=== PATIENT | female | born 1985 | race Caucasian/White ===

== ENCOUNTER → 2018-10-01 12:18 | Outpatient (CLI) | payer BC, SELFPAY ==
--- NOTE | 2018-10-01 12:20 | DI.US.S_ITS ---
PROCEDURE: US OB <= 14 WEEKS FETUS INDICATIONS: DATES OUTSIDE/PRIOR DATING DATA: Last menstrual period (LMP): 07/28/18. LMP-based estimated date of delivery (YOU): 05/04/19. First dating scan (date and location): 10/01/18 at [facility]. Estimated date of delivery (YOU) from first dating scan: 05/11/19. TECHNIQUE: Real-time scanning was performed of the fetus and maternal pelvic organs, with image documentation. Endovaginal scanning was also performed to better visualize the fetus and maternal ovaries. COMPARISON: None. FINDINGS: Embryo: [place]-rump length measures 1.8 cm. Estimated gestational age is 8 weeks 2 days. heart rate is 165 beats per minute. A yolk sac is visualized. Measurement variability in dating: +/- 4 weeks by LMP, +/- 7 days by mean sac diameter (use before 6 weeks gestation if crown-rump length not able to be measured), +/- 5 days by crown-rump length (up to 8 weeks 6 days gestation), +/- 7 days by crown-rump length (up to 13 weeks 6 days gestation). Maternal organs: Left ovary is not visualized on this study. 1.9 cm corpus luteum is noted in right ovary. No ectopic gestational sac. No gross adnexal mass. Limited images through the kidneys demonstrate no hydronephrosis. IMPRESSION: Single live intrauterine gestation. Estimated gestational age based on current study is 8 weeks 2 days. Estimated due date based on current study of 05/11/19. heart rate is 165 beats per minute. Dictated by: Georges Galicia M.D. on 10/01/2018 at 13:47 Approved by: Georges Galicia M.D. on 10/01/2018 at 13:50
== END ==
PROVIDERS: PCP Family Medicine; Visit Provider Family Medicine
DX: Z34.81 Encounter for supervision of other normal pregnancy, first trimester (principal); Z3A.08 8 weeks gestation of pregnancy
CPT/HCPCS: 76801; 76817

== ENCOUNTER → 2018-10-24 12:25 | Outpatient (CLI) | payer BC, SELFPAY | PROVIDERS: PCP Family Medicine; Visit Provider Family Medicine | DX: Z34.81 Encounter for supervision of other normal pregnancy, first trimester (principal) | CPT/HCPCS: 87086 ==

== ENCOUNTER → 2018-12-22 13:04 | Outpatient (CLI) | payer BC, SELFPAY ==
--- NOTE | 2018-12-22 13:05 | DI.US.S_ITS ---
PROCEDURE: US OB >= 14 WEEKS FETUS INDICATIONS: ANATOMIC SURVEY OUTSIDE/PRIOR DATING DATA: Last menstrual period (LMP): 07/28/18. LMP-based estimated date of delivery (YOU): 05/04/19. First dating scan (date and location): 10/01/18. Estimated date of delivery (YOU) from first dating scan: 05/11/19. TECHNIQUE: Real-time scanning was performed of the fetus, with image documentation and biometric measurements. Endovaginal scanning: Not needed. COMPARISON: None. FINDINGS: General: A single living intrauterine gestation is present. Presentation: Variable. Placenta: Placental position is anterior, without previa. Amniotic fluid index: 14.1 cm, normal range is 5-24 cm. heart rate: 152 beats per minute. Maternal cervical canal: 5.2 cm long. Normal lower limit is 2.5 cm. biometrics: Biparietal diameter: 4.7 cm, 20 weeks 2 days Head circumference: 17.9 cm, 20 weeks 2 days Abdominal circumference: 16.7 cm, 21 weeks 5 days Femur length: 3.3 cm, 20 weeks 4 days Estimated gestational age from initial scan: not applicable. Composite gestational age from present scan: 20 weeks 4 days 20 weeks 0 days Estimated weight and percentile: 87 g, 91st percentile Measurement variability for biometric dating: +/- 7 days from 14 weeks to 15 weeks 6 days gestation, +/- 10 days from 16 weeks to 21 weeks 6 days gestation, +/- 2 weeks from 22 weeks to 27 weeks 6 days gestation, +/- 3 weeks for 28 weeks gestation or later. weight reference: 4500 g or EFW >90/95% is considered macrosomia or large for gestational age. EFW <10% is small for gestational age. EFW 5% or less is considered intra-uterine growth restriction. Anatomic survey: Neuro: Ventricles are non-dilated at less than 10 mm. Cisterna magna is normal at 3-11 mm. Cerebellum is normal in size and morphology. Nuchal skin fold: Normal at less than 6 mm between 14-21 weeks gestational age. Face: Nose and lips, facial profile are normal. Spine: No evidence for spina bifida. Heart: Not well-seen, due to positioning. Diaphragm: Diaphragm is intact. Stomach: Left-sided stomach is present. Kidneys: No hydronephrosis. Normal is less than 5 mm in 2nd trimester, less than 7 mm in 3rd trimester. Cord: 3-vessel cord has orthotopic insertion. Bladder: Normal in size. Extremities: All 4 extremities identified. IMPRESSION: Appropriate interval growth. Normal anatomic survey however the 4 chamber view of heart and cardiac outflow tracts were not well seen due to due positioning. Recommend consideration of followup completion of the anatomic survey in approximately 10 days-2 weeks. Delivery date is projected to be centered on 05/11/19, plus or -5 days. Dictated by: Sergio Alberts M.D. on 12/22/2018 at 16:05 Approved by: Sergio Alberts M.D. on 12/22/2018 at 16:08
== END ==
PROVIDERS: PCP Family Medicine; Visit Provider Family Medicine
DX: Z34.82 Encounter for supervision of other normal pregnancy, second trimester (principal); Z3A.20 20 weeks gestation of pregnancy
CPT/HCPCS: 76811

== ENCOUNTER → 2019-01-05 13:49 | Outpatient (CLI) | payer BC, SELFPAY ==
--- NOTE | 2019-01-05 13:51 | DI.US.S_ITS ---
PROCEDURE: US OB FOLLOW UP INDICATIONS: OB greater than 14wks OUTSIDE/PRIOR DATING DATA: Last menstrual period (LMP): 07/28/18. LMP-based estimated date of delivery (YOU): 05/04/19. First dating scan (date and location): 10/01/18. Estimated date of delivery (YOU) from first dating scan: 05/11/19. TECHNIQUE: Real-time scanning was performed of the fetus, with image documentation and biometric measurements. COMPARISON: [facility], OB <= 14 WEEKS FETUS, 10/01/2018, 12:26. [facility], OB >= 14 WEEKS FETUS, 12/22/2018, 13:27. FINDINGS: General: A single living intrauterine gestation is present. Presentation: Vertex. Placenta: Placental position is anterior, without previa. Amniotic fluid index: 9.3 cm. heart rate: 144 beats per minute. Maternal cervical canal: 8.5 cm long. Other: Cardiac motion degrades exam. A 4 chamber heart is identified. The left and right ventricular cardiac outflow tracts are blurred by motion artifact, but no gross abnormalities are identified.. IMPRESSION: 1. Single living intrauterine gestation with heart rate of 144 beats per minute. 2. Exam degraded by motion artifact; within this context, no gross abnormality of the left and right ventricular outflow tracts is identified. Dictated by: Aidan Singh [facility] Interpreted: Igor Best MD on 01/05/2019 at 15:45 Approved by: Igor Best M.D. on 01/05/2019 at 17:43
== END ==
PROVIDERS: PCP Family Medicine; Visit Provider Family Medicine
DX: O35.9XX0 Maternal care for (suspected) fetal abnormality and damage, unspecified, not applicable or unspecified (principal)
CPT/HCPCS: 76816

== ENCOUNTER → 2019-02-20 07:41 | Outpatient (CLI) | payer BC, SELFPAY ==
[2019-02-20 09:29] LABS: Add Manual Diff / Slide Review NO; Basophils Absolute Auto 0 /uL (0-100); Basophils Percent Auto 0.3 % (0-2); Eosinophils Absolute Auto 100 /uL (0-450); Eosinophils Percent Auto 1.1 % (2-4); Hematocrit 38.5 % (36-46); Hemoglobin 12.9 g/dL (12.0-16.0); Lymphocytes Absolute Auto 1100 /uL (1100-4500); Lymphocytes Percent Auto 17.4 % (25-40); Mean Corpuscular HGB Conc 33.4 % (30-36); Mean Corpuscular Hemoglobin 29.9 PG (26-34); Mean Corpuscular Volume 89.5 fL (80-100); Monocytes Absolute Auto 300 /uL (0-900); Monocytes Percent Auto 4.5 % (3-14); Neutrophils Absolute Auto 5100 /uL (1500-7000); Neutrophils Percent Auto 76.7 % (50-75); Platelet Count 216 X10^3/uL (150-400); Red Cell Distribution Width 13.6 % (11.6-14.8); White Blood Cell Count 6.6 X10^3/uL (4.5-11.0)
[2019-02-20 09:47] LABS: GTT (PREG) 1 Hour PP 50gm Dose 143 mg/dL (76-139)
[2019-02-20 10:36] LABS: Hepatitis B Surface Antigen NEGATIVE s/c (NEGATIVE); Rubella Antibody IgG 11.4 IU/mL (>15)
[2019-02-20 11:01] LABS: HIV 1 and 2 Antibody NEGATIVE (NEGATIVE); Hep C Virus Ab w/Reflex Quant NEGATIVE s/c (NEGATIVE)
[2019-02-23 22:43] LABS: RPR Screen Nonreactive (Nonreactive)
== END ==
PROVIDERS: Family Medicine; PCP Family Medicine; Visit Provider Family Medicine
DX: Z34.81 Encounter for supervision of other normal pregnancy, first trimester (principal); Z3A.26 26 weeks gestation of pregnancy
CPT/HCPCS: 36415; 80055; 82950; 86703; 86787; 86803; 86850; 86900; 86901

== ENCOUNTER 2019-03-30 10:46 | Outpatient (CLI) | payer BC, SELFPAY ==
--- NOTE | 2019-03-30 11:26 | DI.US.S_ITS ---
PROCEDURE: US OB >= 14 WEEKS FETUS INDICATIONS: EFW, BLANCA; GESTATIONAL DIABETES OUTSIDE/PRIOR DATING DATA: Last menstrual period (LMP): 07/28/18. LMP-based estimated date of delivery (YOU): 05/04/19. First dating scan (date and location): 10/01/18. Estimated date of delivery (YOU) from first dating scan: 05/11/19. TECHNIQUE: Real-time scanning was performed of the fetus, with image documentation and biometric measurements. Endovaginal scanning: Not needed for this study COMPARISON: [facility], OB >= 14 WEEKS FETUS, 12/22/2018, 13:27. FINDINGS: General: A single living intrauterine gestation is present. Presentation: Breech. Placenta: Placental position is anterior, without previa. Amniotic fluid index: 13.3 cm, normal range is 5-24 cm. heart rate: 140 beats per minute. biometrics: Biparietal diameter: 8.5 cm, 34 weeks 1 day Head circumference: 32.6 cm, 36 weeks 6 days Abdominal circumference: 30.5 cm, 34 weeks 3 days Femur length: 6.8 cm, 35 weeks 1 day Estimated gestational age from initial scan: 34 weeks 0 days Composite gestational age from present scan: 35 weeks 1 day Estimated weight and percentile: 2534 g, upper 70 and percentile Measurement variability for biometric dating: +/- 7 days from 14 weeks to 15 weeks 6 days gestation, +/- 10 days from 16 weeks to 21 weeks 6 days gestation, +/- 2 weeks from 22 weeks to 27 weeks 6 days gestation, +/- 3 weeks for 28 weeks gestation or later. weight reference: 4500 g or EFW >90/95% is considered macrosomia or large for gestational age. EFW <10% is small for gestational age. EFW 5% or less is considered intra-uterine growth restriction. Anatomic survey: Neuro: Ventricles are non-dilated at less than 10 mm. Cisterna magna is normal at 3-11 mm. Cerebellum is normal in size and morphology. Nuchal skin fold: Normal at less than 6 mm between 14-21 weeks gestational age. Face: Nose and lips, facial profile are normal. Spine: No evidence for spina bifida. Heart: 4-chambered heart is present, with normal ventricular outflow tracts. Diaphragm: Diaphragm is intact. Stomach: Left-sided stomach is present. Kidneys: No hydronephrosis. Normal is less than 5 mm in 2nd trimester, less than 7 mm in 3rd trimester. Cord: 3-vessel cord has orthotopic insertion. Bladder: Normal in size. Extremities: All 4 extremities identified. IMPRESSION: Breech presentation, appropriate interval growth. The delivery date is projected to be centered on 05/11/19, plus or -5 days, based on the first OB ultrasound 10/01/18. Dictated by: Sergio Alberts M.D. on 03/30/2019 at 12:10 Approved by: Sergio Alberts M.D. on 03/30/2019 at 12:13
--- NOTE | 2019-03-30 13:16 | PM.OBTRLD ---
Visit Information Visit Information Date of evaluation: 03/30/19 Primary OB Provider: Misty Nicholson Reason for Evaluation: Yes non-stress test non-stress test reason: diabetes (starting metformin) [facility] Social History Smoking Status: Former smoker Social History Smoking Status: Former smoker Evaluation Evaluation Baseline heart rate: 140 Variability: Average (6-10) monitor accelerations: Present monitor decelerations: Absent Diagnosis, Plan/Disposition Final Diagnosis (1) GDM, class A2: Current Visit: No Status: Acute (2) 34 weeks gestation of : Current Visit: No Status: Acute Plan/Disposition Plan: 33-year-old at 34 weeks gestation with GDM A2 now on metformin. NST reactive Growth is appropriate, BLANCA 13 Plan for twice weekly NST with once weekly BLANCA remainder OB Disposition: home
== END 2019-03-30 12:30 | disposition home or self-care (01) ==
LOC: LABOR 10:53 → OB 03-31 12:09
PROVIDERS: PCP Family Medicine; Visit Provider Family Medicine
DX: O24.415 Gestational diabetes mellitus in pregnancy, controlled by oral hypoglycemic drugs (principal); Z3A.34 34 weeks gestation of pregnancy
CPT/HCPCS: 59025; 59050; 76811; G0378; G0379

== ENCOUNTER 2019-04-02 07:21 | Outpatient (CLI) | payer BC, SELFPAY ==
--- NOTE | 2019-04-02 08:28 | PM.OBTRLD ---
Visit Information Visit Information Date of evaluation: 04/02/19 Primary OB Provider: Misty Nicholson Reason for Evaluation: Yes non-stress test non-stress test reason: diabetes PFSH Social History Smoking Status: Former smoker Exam Vital Signs (past 8 hours): BP 115/56 HR 93 Evaluation Evaluation Baseline heart rate: 135 Variability: Moderate (11-25) monitor accelerations: Present monitor decelerations: Absent Category of Tracing: I Diagnosis, Plan/Disposition Final Diagnosis (1) GDM, class A2: Current Visit: No Status: Acute (2) 34 weeks gestation of : Current Visit: No Status: Acute Plan/Disposition Plan: Reactive NST Continue twice weekly NST and once weekly BPP OB Disposition: home
== END 2019-04-02 08:40 | disposition home or self-care (01) ==
LOC: LABOR 08:45 → OB 04-07 08:10
PROVIDERS: PCP Family Medicine; Visit Provider Family Medicine
DX: O24.419 Gestational diabetes mellitus in pregnancy, unspecified control (principal); Z3A.34 34 weeks gestation of pregnancy
CPT/HCPCS: 59025; G0378; G0379

== ENCOUNTER 2019-04-06 07:32 | Outpatient (CLI) | payer BC, SELFPAY ==
--- NOTE | 2019-04-06 08:16 | DI.US.S_ITS ---
PROCEDURE: US OB LIMITED INDICATIONS: AMNIOTIC FLUID INDEX OUTSIDE/PRIOR DATING DATA: Last menstrual period (LMP): 07/28/18. LMP-based estimated date of delivery (YOU): 05/04/19. First dating scan (date and location): 10/01/18. Estimated date of delivery (YOU) from first dating scan: 09/11/19. TECHNIQUE: Real-time scanning was performed of the fetus, with image documentation. Endovaginal scanning: Not performed COMPARISON: [facility], OB >= 14 WEEKS FETUS, 03/30/2019, 11:13. [facility] OB FOLLOW UP, 01/05/2019, 13:58. [facility] OB >= 14 WEEKS FETUS, 12/22/2018, 13:27. [facility] OB <= 14 WEEKS FETUS, 10/01/2018, 12:26. FINDINGS: A single living intrauterine gestation is present. Presentation: Vertex. Placenta: Placental position is anterior, without previa. Amniotic fluid index: 17.1 cm, normal range is 5-24 cm. heart rate: 137 beats per minute. Estimated gestational age from initial scan: 35 weeks zero days. IMPRESSION: Single living intrauterine fetus in vertex presentation. Normal BLANCA (largest pocket 5.8 cm). Dictated by: Eulogio Cruz M.D. on 04/06/2019 at 9:02 Approved by: Eulogio Cruz M.D. on 04/06/2019 at 9:05
--- NOTE | 2019-04-06 08:18 | PM.OBTRLD ---
Visit Information Visit Information Date of evaluation: 04/06/19 Primary OB Provider: Misty Nicholson Reason for Evaluation: Yes non-stress test non-stress test reason: diabetes PFSH Social History Smoking Status: Former smoker Social History Smoking Status: Former smoker Exam Vital Signs (past 8 hours): BP 125/59 HR 85 Evaluation Evaluation Baseline heart rate: 130 Variability: Moderate (11-25) monitor accelerations: Present monitor decelerations: Absent Diagnosis, Plan/Disposition Final Diagnosis (1) 35 weeks gestation of : Current Visit: No Status: Acute (2) GDM, class A2: Current Visit: No Status: Acute Plan/Disposition Plan: NST reactive. BLANCA 17. Continue twice weekly NST and once weekly BLANCA. OB Disposition: home
== END 2019-04-06 08:32 | disposition home or self-care (01) ==
LOC: LABOR 07:37 → OB 04-07 08:11
PROVIDERS: PCP Family Medicine; Visit Provider Family Medicine
DX: O24.419 Gestational diabetes mellitus in pregnancy, unspecified control (principal); Z3A.35 35 weeks gestation of pregnancy
CPT/HCPCS: 59025; 76815; G0378; G0379

== ENCOUNTER 2019-04-09 07:30 | Outpatient (CLI) | payer BC, SELFPAY ==
--- NOTE | 2019-04-09 09:20 | PM.OBTRLD ---
Visit Information Visit Information Date of evaluation: 04/09/19 Primary OB Provider: Misty Nicholson Reason for Evaluation: Yes non-stress test non-stress test reason: diabetes PFSH Social History Smoking Status: Former smoker Exam Vital Signs (past 8 hours): BP 122/76 HR 95 Evaluation Evaluation Baseline heart rate: 140 Variability: Moderate (11-25) monitor accelerations: Present monitor decelerations: Variable (One brief isolated variable without recurrence) Diagnosis, Plan/Disposition Final Diagnosis (1) 35 weeks gestation of : Current Visit: No Status: Acute (2) GDM, class A2: Current Visit: No Status: Acute Plan/Disposition Plan: Reactive NST Continue twice weekly NST and BLANCA once weekly
== END 2019-04-09 09:15 | disposition home or self-care (01) ==
LOC: LABOR 08:32 → OB 15:29
PROVIDERS: PCP Family Medicine; Visit Provider Family Medicine
DX: O24.419 Gestational diabetes mellitus in pregnancy, unspecified control (principal); Z3A.35 35 weeks gestation of pregnancy
CPT/HCPCS: 59025; 59050; G0378; G0379

== ENCOUNTER → 2019-04-13 09:49 | Outpatient (CLI) | payer BC, SELFPAY ==
[2019-04-14 18:35] LABS: Strep Grp B PCR NEG for Grp B Strep
== END ==
PROVIDERS: PCP Family Medicine; Visit Provider Family Medicine
DX: Z3A.36 36 weeks gestation of pregnancy (principal)
CPT/HCPCS: 87653

== ENCOUNTER 2019-04-16 07:27 | Outpatient (CLI) | payer BC, SELFPAY ==
--- NOTE | 2019-04-16 08:14 | PM.OBTRLD ---
Visit Information Visit Information Date of evaluation: 04/16/19 Primary OB Provider: Misty Nicholson Reason for Evaluation: Yes non-stress test non-stress test reason: diabetes Vital Signs Vital Signs: Temp 36.3 BP 125/59 HR 85 PFSH Social History Smoking Status: Former smoker Evaluation Evaluation Baseline heart rate: 140 Variability: Moderate (11-25) monitor accelerations: Present monitor decelerations: Absent Contraction Frequency (minutes): 2 Uterine Contraction Intensity: Mild Category of Tracing: I Diagnosis, Plan/Disposition Final Diagnosis (1) 36 weeks gestation of : Current Visit: Yes Status: Acute (2) GDM, class A2: Current Visit: No Status: Acute Plan/Disposition Plan: Reactive NST. Continue weekly BLANCA and twice weekly NST. OB Disposition: home
== END 2019-04-16 08:20 | disposition home or self-care (01) ==
LOC: OB 11:49
PROVIDERS: PCP Family Medicine; Visit Provider Family Medicine
DX: O24.419 Gestational diabetes mellitus in pregnancy, unspecified control (principal); Z3A.36 36 weeks gestation of pregnancy
CPT/HCPCS: 59025; G0378; G0379

== ENCOUNTER → 2019-04-20 14:53 | Outpatient (CLI) | payer BC, SELFPAY ==
[2019-04-20 15:44] LABS: Alanine Aminotransferase 27 IU/L (9-52); Aspartate Aminotransferase 28 IU/L (14-36); Blood Urea Nitrogen 16 mg/dL (7-17); Estimated Glomerular Filt Rate > 60.0 mL/min (>60)
[2019-04-20 16:36] LABS: Collection Time Urine 24 Hours; Creatinine 24 Hour Urine 1222 mg/day (800-1800); Creatinine Urine Random 71.9 mg/dL; Protein (Total) Urine Random 9 mg/dL (0-12); Total Protein 24 Hour Urine 153 mg/day (42-225); Total Volume Urine 1700 mL
[2019-04-20 16:50] LABS: Collection Time Urine 24 Hours; Microalbumin Urine Random < 0.6 mg/dL (0-1.6); Total Volume Urine 1700 mL
[2019-04-20 16:51] LABS: Microalbumin 24 Hour Urine < 10.2 mg/day (<30); Microalbumin Excretion Rate Ur < 7.1 ug/min (<20)
== END ==
PROVIDERS: PCP Family Medicine; Visit Provider Family Medicine
DX: O24.419 Gestational diabetes mellitus in pregnancy, unspecified control (principal); Z3A.00 Weeks of gestation of pregnancy not specified
CPT/HCPCS: 36415; 82043; 82565; 82570; 84156; 84450; 84460; 84520

== ENCOUNTER 2019-04-23 07:31 | Observation (INO) | payer BC, SELFPAY ==
--- NOTE | 2019-04-23 08:29 | PM.OBTRLD ---
Visit Information Visit Information Date of evaluation: 04/23/19 Primary OB Provider: Misty Nicholson Reason for Evaluation: Yes non-stress test non-stress test reason: diabetes PFSH Social History Smoking Status: Former smoker Exam Vital Signs (past 8 hours): BP 115/56 HR 90 Evaluation Evaluation Baseline heart rate: 135 Variability: Moderate (11-25) monitor accelerations: Present monitor decelerations: Absent Category of Tracing: I Diagnosis, Plan/Disposition Final Diagnosis (1) GDM, class A2: Current Visit: No Status: Acute (2) 37 weeks gestation of : Current Visit: Yes Status: Acute Plan/Disposition Plan: Reactive NST. Continue weekly BLANCA and twice weekly NST. OB Disposition: home
== END 2019-04-23 08:40 | disposition home or self-care (01) ==
LOC: LABOR 07:32
PROVIDERS: Admitting Provider Family Medicine; PCP Family Medicine; Visit Provider Family Medicine
DX: O24.419 Gestational diabetes mellitus in pregnancy, unspecified control (principal); Z3A.37 37 weeks gestation of pregnancy
CPT/HCPCS: 59025; G0378; G0379

== ENCOUNTER 2019-04-30 07:25 | Outpatient (CLI) | payer BC, SELFPAY ==
--- NOTE | 2019-04-30 07:32 | DI.US.S_ITS ---
PROCEDURE: US OB >= 14 WEEKS FETUS INDICATIONS: GDM, BLANCA OUTSIDE/PRIOR DATING DATA: Last menstrual period (LMP): 07/28/18. LMP-based estimated date of delivery (YOU): . First dating scan (date and location): 10/01/18. Estimated date of delivery (YOU) from first dating scan: 05/11/19. TECHNIQUE: Real-time scanning was performed of the fetus, with image documentation and biometric measurements. Endovaginal scanning: Not performed COMPARISON: [facility], OB >= 14 WEEKS FETUS, 03/30/2019, 11:13. FINDINGS: General: A single living intrauterine gestation is present. Presentation: Vertex. Placenta: Placental position is anterior, without previa. Amniotic fluid index: 14.7 cm, normal range is 5-24 cm. heart rate: 135 beats per minute. Maternal cervical canal: Not seen. IMPRESSION: 1. Single living intrauterine is in vertex presentation. 2. Amniotic fluid index is 14.7 cm, within normal limits. Dictated by: Margarita Mahan M.D. on 04/30/2019 at 8:01 Approved by: Margarita Mahan M.D. on 04/30/2019 at 8:04
== END 2019-04-30 08:46 | disposition home or self-care (01) ==
LOC: LABOR 07:51 → OB 16:51
PROVIDERS: PCP Family Medicine; Visit Provider Family Medicine
DX: O24.419 Gestational diabetes mellitus in pregnancy, unspecified control (principal); Z3A.38 38 weeks gestation of pregnancy
CPT/HCPCS: 59025; 76815; G0378; G0379

== ENCOUNTER 2019-05-03 17:53 | Inpatient (IN) | payer BC, SELFPAY ==
[2019-05-03 19:19] LABS: Add Manual Diff / Slide Review NO; Basophils Absolute Auto 0 /uL (0-100); Basophils Percent Auto 0.5 % (0-2); Eosinophils Absolute Auto 100 /uL (0-450); Eosinophils Percent Auto 0.8 % (2-4); Hematocrit 38.8 % (36-46); Hemoglobin 13.2 g/dL (12.0-16.0); Lymphocytes Absolute Auto 2000 /uL (1100-4500); Lymphocytes Percent Auto 21.3 % (25-40); Mean Corpuscular Hemoglobin 30.6 PG (26-34); Mean Corpuscular Volume 89.9 fL (80-100); Monocytes Absolute Auto 500 /uL (0-900); Monocytes Percent Auto 5.5 % (3-14); Neutrophils Absolute Auto 6700 /uL (1500-7000); Neutrophils Percent Auto 71.9 % (50-75); Platelet Count 219 X10^3/uL (150-400); Red Blood Cell Count 4.31 X10^6/uL (4.0-5.2); Red Cell Distribution Width 13.6 % (11.6-14.8); White Blood Cell Count 9.3 X10^3/uL (4.5-11.0)
[2019-05-03] MEDS: DINOPROSTONE VAG (CERVIDIL) 10 MG VAG (20:30)
[2019-05-03] MEDS: ACETAMINOPHEN 325 MG TABLET 650 MG PO (20:41)
[2019-05-03] MEDS: ZOLPIDEM 5 MG TABLET PO (22:05)
[2019-05-03] MEDS: METFORMIN HCL 500 MG TABLET 1000 MG PO (23:27)
[2019-05-03] MEDS: ACYCLOVIR 200 MG CAPSULE 400 MG PO (23:35)
[2019-05-04 06:52] VITALS: BP 108/59
--- NOTE | 2019-05-04 07:18 | PM.OBHP.1 ---
OB HPI Date/Time Date of admission: 05/03/19 Date Patient Seen: 05/04/19 Time Patient Seen: 07:30 History of Present Condition Chief complaint: eval of labor : 2 Para: 1 Estimated Date of Delivery: 05/11/19 Estimated Gestational Age (weeks): 39 Narrative: Norma Hinson is a 33 year old at 39 weeks of gestation here for induction. was complicated by GDM A2 managed with metformin 500 mg b.i.d.. The last few weeks of metformin was increased to a 1000 mg at night due to elevated fasting blood sugars. She was followed by [facility] this with weekly BLANCA and twice weekly NST. Last ultrasound fetus measured in the 82nd percentile for weight at 38 weeks. Patient also has history of HSV 2 and took prophylactic acyclovir the last month of . Patient received Cervidil overnight. This morning she denies pain, cramping or contractions. Indications Indication for induction OB: other (GDM A2) History of Present care: good care, initiated at week # (11), number of visits (10) and pounds weight gain (30) Dating criteria: based on 1st trimester US only (Discordant from LMP) Ultrasounds: normal 1st trimester US and normal mid trimester US Obstetrical complications: gestational diabetes Medical complications: none Preadmission Labs Blood type: A (+) positive -: Antibody screen: negative, GBS status: negative, HBsAG: negative, HIV: negative, HSV 2: positive and RPR/VDLR: negative -: Rubella: immune and Varicella: immune HCT: 38.9 HCAB: negative Urine: Negative 1 hr GTT: 143 Prior (ies) History: 09/10/15 at 40 weeks, induction due to PROM, 16 hour labor, 9.5 lb male, epidural, breast-fed 21 months Evaluation Evaluation Baseline heart rate: 130 Variability: Moderate (11-25) monitor accelerations: Present monitor decelerations: Absent Uterine Contraction Intensity: Mild Category of Tracing: I Cervical dilation (cm): 1 Cervical effacement (%): 50 station: -3 Laboratory results: Laboratory Tests 05/03/19 05/03/19 18:36 18:36 WBC 9.3 RBC 4.31 Hgb 13.2 Hct 38.8 MCV 89.9 MCH 30.6 MCHC 34.0 RDW 13.6 Plt Count 219 Neut % (Auto) 71.9 Lymph % (Auto) 21.3 L Nicholas % (Auto) 5.5 Eos % (Auto) 0.8 L Baso % (Auto) 0.5 Neut # (Auto) 6700 Lymph # (Auto) 2000 Nicholas # (Auto) 500 Eos # (Auto) 100 Baso # (Auto) 0 Blood Type A Positive Antibody Screen Negative [facility] Medical History Genital herpes (Resolved) H/O wisdom tooth extraction (Resolved) Spontaneous vaginal delivery (Resolved) Social History Smoking Status: Never smoker Social History (Updated 05/04/19 @ 13:02 by Misty Nicholson DO) marital status: number of children: 1 occupational status: employed Smoking Status: Never smoker alcohol intake: former substance use type: does not use Meds Home Medications Medication Instructions Recorded Confirmed Type 1 tab PO DAILY 10/08/18 05/04/19 History vitamin,calcium,[id number] acid tablet blood-glucose meter kit #1 each 02/25/19 Rx acyclovir 400 mg tablet 400 mg PO BID #60 tab 04/13/19 05/04/19 Rx blood sugar diagnostic strips #50 each 04/27/19 Rx metformin 1,000 mg PO BEDTIME 05/04/19 05/04/19 History Allergies Allergy/AdvReac Type Severity Reaction Status Date / Time Penicillins [PENICILLINS] Allergy Intermediate BUMPS ALL Unverified 01/29/18 12:48 OVER Review of Systems Constitutional Constitutional: Denies fatigue, Denies fever(s) and Reports headache(s) (last night, resolved with acetaminophen) ENT Ears, Nose, Mouth, and Throat: Yes headache(s) (last night, resolved with acetaminophen) Cardiovascular Cardiovascular: Denies chest pain, Denies leg swelling and Denies shortness of breath with activity Respiratory Respiratory: Denies cough and Denies dyspnea on exertion Gastrointestinal Gastrointestinal: Denies abdominal pain, Denies change in bowel habits, Denies nausea and Denies vomiting Neurologic Neurologic: Reports headache(s) (last night, resolved with acetaminophen) Endocrine Endocrine: Denies fatigue Exam Vital Signs (past 8 hours): - 05/04/19 06:52 Blood Pressure 108/59 L Const General: cooperative, healthy appearing and comfortable [facility] Head: normal to inspection Ears: hearing grossly normal bilaterally Nose: external nose normal Face and sinus: normal facial exam Mouth: oral mucosae normal Teeth and gingiva: dentition normal Eyes General: appearance normal, both eyes and all related structures Neck Neck: normal visual inspection Resp Effort & Inspection: normal respiratory effort Auscultation: clear to auscultation bilaterally, no crackles and no wheezes Cardio Rate: regular rate Rhythm: regular rhythm Heart Sounds: no murmurs GI Inspection: normal to inspection (Gravid) External Female Exam: external appearance normal Manual OB Exam: dilated 1, effaced 50% and station high Presentation: vertex Estimated Weight (lbs): 8 Skin General: no rashes or lesions noted Extrem General: normal to inspection and no pedal edema Objective Labs Result Diagrams: 05/03/19 18:36 Labs: Laboratory Results - last 24 hr 05/03/19 05/03/19 18:36 18:36 WBC 9.3 RBC 4.31 Hgb 13.2 Hct 38.8 MCV 89.9 MCH 30.6 MCHC 34.0 RDW 13.6 Plt Count 219 Neut % (Auto) 71.9 Lymph % (Auto) 21.3 L Nicholas % (Auto) 5.5 Eos % (Auto) 0.8 L Baso % (Auto) 0.5 Neut # (Auto) 6700 Lymph # (Auto) 2000 Nicholas # (Auto) 500 Eos # (Auto) 100 Baso # (Auto) 0 Blood Type A Positive Antibody Screen Negative Assessment and Plan Assessment and Plan Assessment and Plan narrative: 33 year old at 39 weeks gestation here for induction for GDM A2. Received Cervidil overnight. Munguia score this morning is 6. Fasting blood sugar 84 today. Plan - Pitocin per protocol - Epidural when desired
[2019-05-04] MEDS: LACTATED RINGERS 1,000 ML 100 ML IV (08:51)
[2019-05-04] MEDS: OXYTOCIN PREMIX 30 UNIT/500 ML PLAST..BAG IV (08:51)
--- NOTE | 2019-05-04 17:13 | PM.OBPNLAB ---
Date/Time Date Patient Seen: 05/04/19 Time Patient Seen: 17:00 Pain Control Pain control: tolerating well Comments: Feels contractions but denies pain Pelvic Exam Dilation (cm): 1 Effacement (%): 75 station: -2 Contractions Monitor mode: External Pitocin rate (mU/min): 30 Contraction frequency (min): 2 Contraction pattern: Regular Contraction intensity: Mild Status status: Category l Heart Rate Baseline: 135 Monitor Accelerations: Present Monitor Decelerations: Absent Monitor Variability: Moderate Assessment and Plan Assessment: induction ongoing Comments: Patient on pitocin 30 mU/min all day with minimal cervical change. Will shut off pitocin, repeat Cervidil overnight and resume pitocin in the morning.
[2019-05-04] MEDS: DINOPROSTONE VAG (CERVIDIL) 10 MG VAG (18:55)
[2019-05-04] MEDS: METFORMIN HCL 500 MG TABLET 1000 MG PO (21:03)
[2019-05-04] MEDS: ACYCLOVIR 400 MG TABLET PO (21:03)
[2019-05-04] MEDS: ZOLPIDEM 5 MG TABLET PO (22:04)
--- NOTE | 2019-05-05 07:32 | PM.OBPNLAB ---
Date/Time Date Patient Seen: 05/05/19 Time Patient Seen: 08:12 Pain Control Pain control: tolerating well Comments: Patient slept overnight. No complaints this morning. Denies cramping or painful contractions. Pelvic Exam Dilation (cm): 1 Effacement (%): 75 station: -2 Amniotic membrane status: Intact Contractions Monitor mode: External Contraction pattern: Irregular Contraction intensity: Mild Status status: Category l Heart Rate Baseline: 130 Monitor Accelerations: Present Monitor Decelerations: Absent Monitor Variability: Moderate Assessment and Plan Comments: Modest change overnight with Cervidil, SVE 1.5/75/-2, soft and anterior. Discussed dill bulb with patient, reviewed risks and benefits. Dill bulb placed without difficulty. Will start low dose pitocin.
[2019-05-05] MEDS: METFORMIN HCL 500 MG TABLET PO (07:33)
[2019-05-05] MEDS: OXYTOCIN PREMIX 30 UNIT/500 ML PLAST..BAG IV (09:12)
--- NOTE | 2019-05-05 13:10 | PM.OBPNLAB ---
Date/Time Date Patient Seen: 05/05/19 Time Patient Seen: 13:00 Pain Control Pain control: tolerating well Pelvic Exam Dilation (cm): 4 Effacement (%): 80 station: -2 Amniotic membrane status: Intact Contractions Monitor mode: External Pitocin rate (mU/min): 3 Contraction pattern: Irregular Contraction intensity: Mild Status status: Category l Heart Rate Baseline: 135 Monitor Accelerations: Present Monitor Decelerations: Absent Monitor Variability: Moderate Assessment and Plan Assessment: induction ongoing Comments: Eddy bulb fell out, patient is now 4 cm. Will increase pitocin per protocol.
--- NOTE | 2019-05-05 17:07 | PM.OBPNLAB ---
Date/Time Date Patient Seen: 05/05/19 Time Patient Seen: 16:53 Pain Control Pain control: tolerating well Comments: Just now starting to feel painful with contractions Pelvic Exam Dilation (cm): 4 Effacement (%): 80 station: -3 Amniotic membrane status: Intact Contractions Monitor mode: External Pitocin rate (mU/min): 17 Contraction frequency (min): 3 Contraction pattern: Regular Contraction intensity: Moderate Status status: Category l Heart Rate Baseline: 140 Monitor Accelerations: Present Monitor Decelerations: Absent Monitor Variability: Moderate Assessment and Plan Assessment: induction ongoing Comments: No cervical change since last check despite pitocin however patient states she is just beginning to feel uncomfortable with contractions. Will continue pitocin. If not in active labor in the next three hours will send home undelivered and have her return 05/08/19 for pitocin induction. We have now tried Cervidil twice, pitocin for two days and a dill bulb without progression to active labor though she may be on the cusp now.
--- NOTE | 2019-05-07 07:06 | PM.DS.1 ---
History of Present Illness Date Patient Seen: 05/05/19 Time Patient Seen: 17:00 Chief complaint: Narrative: 33 year old at 39+2 weeks gestation who came in for induction due to gestational diabetes treated with metformin. Please refer to H&P for details. Discharge Providers Date of admission: 05/03/19 17:53 Discharge Date: 05/05/19 Primary care physician: Misty Nicholson DO Discharge provider: Misty Nicholson DO Summary Discharge Diagnosis: 39 weeks GDM A2 Failed induction Hospital Course: Patient initially received Cervidil the night of 05/03/19 for cervical ripening with change in Munguia score from 3 to 6. The following day she was on Pitocin all day with regular contractions every 2 minutes however no cervical change. The night of 05/04/19 she again received Cervidil for ripening overnight. The following day a Eddy bulb was placed for cervical ripening and she again received Pitocin. 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 At this point the decision was made to discharge her home for a couple days and return for repeat induction on 05/08/19. heart tones were reassuring throughout induction. Blood sugars well controlled. Fasting blood sugars were in the 80s on the and april. She will discharge home on her usual metformin. Labor precautions reviewed with patient. Exam Vital Signs (past 8 hours): Please see exam from progress note on same day. Objective Labs Result Diagrams: 05/03/19 18:36 Discharge Plan Discharge Plan Patient Disposition: Home Discharge Med Rec/Prescriptions Prescriptions: Continued Blood Glucose Test strip .ROUTE .MEDSUPPLY Qty: 50 RF: 3 acyclovir 400 mg tablet 400 mg PO BID Qty: 60 RF: 0 blood-glucose meter kit .ROUTE .MEDSUPPLY Qty: 1 RF: 0 prenat.vits,glenn,qlc-atyg-dkkam tablet 1 tab PO DAILY RF: 0 metformin 500 mg tablet 1,000 mg PO BEDTIME RF: 0 Follow up/Referrals: Misty Nicholson DO [Primary Care Provider] - Discharge Data Primary Care Provider: Misty Nicholson Attending Provider: Misty Nicholson Admit Date/Time: 05/03/19 17:53 Discharges patient from system. Discharge Date/Time: 05/05/19 21:10
--- NOTE | 2019-05-07 07:12 | P.DS_ITS ---
History of Present Illness Date Patient Seen: 05/05/19 Time Patient Seen: 17:00 Chief complaint: Narrative: 33 year old at 39+2 weeks gestation who came in for induction due to gestational diabetes treated with metformin. Please refer to H&P for details. Discharge Providers Date of admission: 05/03/19 17:53 Discharge Date: 05/05/19 Primary care physician: Misty Nicholson DO Discharge provider: Misty Nicholson DO Summary Discharge Diagnosis: 39 weeks GDM A2 Failed induction Hospital Course: Patient initially received Cervidil the night of 05/03/19 for cervical ripening with change in Munguia score from 3 to 6. The following day she was on Pitocin all day with regular contractions every 2 minutes however no cervical change. The night of 05/04/19 she again received Cervidil for ripening overnight. The following day a Eddy bulb was placed for cervical ripening and she again received Pitocin. 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 At this point the decision was made to discharge her home for a couple days and return for repeat induction on 05/08/19. heart tones were reassuring throughout induction. Blood sugars well controlled. Fasting blood sugars were in the 80s on the and april. She will discharge home on her usual metformin. Labor precautions reviewed with patient. Exam Vital Signs (past 8 hours): Please see exam from progress note on same day. Objective Labs Result Diagrams: 05/03/19 18:36 Discharge Plan Discharge Plan Patient Disposition: Home Discharge Med Rec/Prescriptions Prescriptions: Continued Blood Glucose Test strip .ROUTE .MEDSUPPLY Qty: 50 RF: 3 acyclovir 400 mg tablet 400 mg PO BID Qty: 60 RF: 0 blood-glucose meter kit .ROUTE .MEDSUPPLY Qty: 1 RF: 0 prenat.vits,glenn,mla-vyra-jrihm tablet 1 tab PO DAILY RF: 0 metformin 500 mg tablet 1,000 mg PO BEDTIME RF: 0 Follow up/Referrals: Misty Nicholson DO [Primary Care Provider] - Discharge Data Primary Care Provider: Misty Nicholson Attending Provider: Misty Nicholson Admit Date/Time: 05/03/19 17:53 Discharges patient from system. Discharge Date/Time: 05/05/19 21:10
== END 2019-05-05 21:10 | disposition home or self-care (01) | DRG 998 ==
PROVIDERS: Admitting Provider Family Medicine; PCP Family Medicine; Visit Provider Family Medicine
DX: O24.425 Gestational diabetes mellitus in childbirth, controlled by oral hypoglycemic drugs (principal); O98.32 Other infections with a predominantly sexual mode of transmission complicating childbirth; B00.9 Herpesviral infection, unspecified; Z3A.39 39 weeks gestation of pregnancy
CPT/HCPCS: 85025; 86850; 86900; 86901; G0379; J2590

== ENCOUNTER 2019-05-08 07:12 | Inpatient (IN) | payer BC, SELFPAY ==
--- NOTE | 2019-05-08 07:59 | PM.OBHP.1 ---
OB HPI History of Present Condition Chief complaint: PREGNANC/INDUCING Narrative: Please refer to H&P from 05/03/19. [facility] Social History (Updated 05/04/19 @ 13:02 by Misty Nicholson DO) marital status: number of children: 1 occupational status: employed Smoking Status: Never smoker alcohol intake: former substance use type: does not use Meds Home Medications Medication Instructions Recorded Confirmed Type 1 tab PO DAILY 10/08/18 05/04/19 History vitamin,calcium,jccpysnd-drfz-ndgmd acid tablet blood-glucose meter kit #1 each 02/25/19 Rx acyclovir 400 mg tablet 400 mg PO BID #60 tab 04/13/19 05/04/19 Rx blood sugar diagnostic strips #50 each 04/27/19 Rx metformin 1,000 mg PO BEDTIME 05/04/19 05/04/19 History Allergies Allergy/AdvReac Type Severity Reaction Status Date / Time Penicillins [PENICILLINS] Allergy Intermediate BUMPS ALL Unverified 01/29/18 12:48 OVER Exam Const General: healthy appearing and comfortable HENMT Head: normal to inspection Ears: hearing grossly normal bilaterally Nose: external nose normal Face and sinus: normal facial exam Mouth: oral mucosae normal Eyes General: appearance normal, both eyes and all related structures Neck Neck: normal visual inspection Resp Effort & Inspection: normal respiratory effort Auscultation: clear to auscultation bilaterally Cardio Rate: regular rate Rhythm: regular rhythm Heart Sounds: no murmurs External Female Exam: external appearance normal Manual OB Exam: dilated 4, effaced 50% and station high Presentation: vertex Back/Spine/Pelvis Back: normal to inspection Skin General: no rashes or lesions noted Neuro General: alert, awake and oriented x3 Extrem General: normal to inspection and no pedal edema Assessment and Plan Assessment and Plan Assessment and Plan narrative: 33 year old at 39+4 weeks gestation with GDM A2. She is returning for induction after failed induction earlier this week with Cervidil, dill bulb and pitocin. Blood sugars historically well-controlled however patient reports a blood sugar of 100 fasting prior to arrival this morning. Plan Pitocin per protocol AROM when head well-applied to cervix Epidural upon request
[2019-05-08] MEDS: LACTATED RINGERS 1,000 ML 100 ML IV (08:00)
[2019-05-08] MEDS: OXYTOCIN PREMIX 30 UNIT/500 ML PLAST..BAG IV (08:01)
--- NOTE | 2019-05-08 08:03 | P.HPOB_ITS ---
OB HPI History of Present Condition Chief complaint: PREGNANC/INDUCING Narrative: Please refer to H&P from 05/03/19. [facility] Social History (Updated 05/04/19 @ 13:02 by Misty Nicholson DO) marital status: number of children: 1 occupational status: employed Smoking Status: Never smoker alcohol intake: former substance use type: does not use Meds Home Medications Medication Instructions Recorded Confirmed Type 1 tab PO DAILY 10/08/18 05/04/19 History vitamin,calcium,erhkyreh-mwww-ihhpw acid tablet blood-glucose meter kit #1 each 02/25/19 Rx acyclovir 400 mg tablet 400 mg PO BID #60 tab 04/13/19 05/04/19 Rx blood sugar diagnostic strips #50 each 04/27/19 Rx metformin 1,000 mg PO BEDTIME 05/04/19 05/04/19 History Allergies Allergy/AdvReac Type Severity Reaction Status Date / Time Penicillins [PENICILLINS] Allergy Intermediate BUMPS ALL Unverified 01/29/18 12:48 OVER Exam Const General: healthy appearing and comfortable HENMT Head: normal to inspection Ears: hearing grossly normal bilaterally Nose: external nose normal Face and sinus: normal facial exam Mouth: oral mucosae normal Eyes General: appearance normal, both eyes and all related structures Neck Neck: normal visual inspection Resp Effort & Inspection: normal respiratory effort Auscultation: clear to auscultation bilaterally Cardio Rate: regular rate Rhythm: regular rhythm Heart Sounds: no murmurs External Female Exam: external appearance normal Manual OB Exam: dilated 4, effaced 50% and station high Presentation: vertex Back/Spine/Pelvis Back: normal to inspection Skin General: no rashes or lesions noted Neuro General: alert, awake and oriented x3 Extrem General: normal to inspection and no pedal edema Assessment and Plan Assessment and Plan Assessment and Plan narrative: 33 year old at 39+4 weeks gestation with GDM A2. She is returning for induction after failed induction earlier this week with Cervidil, dill bulb and pitocin. Blood sugars historically well-controlled however patient reports a blood sugar of 100 fasting prior to arrival this morning. Plan Pitocin per protocol AROM when head well-applied to cervix Epidural upon request
[2019-05-08 09:16] VITALS: BP 123/60
[2019-05-08 10:08] LABS: Hematocrit 39.1 % (36-46); Hemoglobin 13.4 g/dL (12.0-16.0); Mean Corpuscular HGB Conc 34.3 % (30-36); Mean Corpuscular Hemoglobin 30.8 PG (26-34); Mean Corpuscular Volume 89.8 fL (80-100); Platelet Count 222 X10^3/uL (150-400); Red Blood Cell Count 4.35 X10^6/uL (4.0-5.2); Red Cell Distribution Width 13.9 % (11.6-14.8); White Blood Cell Count 7.8 X10^3/uL (4.5-11.0)
[2019-05-08 10:38] LABS: Neutrophils Absolute Manual 5460 /uL (3000-5900); RBC Morphology Normal Morphology; Total Cells Counted 100
--- NOTE | 2019-05-08 12:43 | PM.OBPNLAB ---
Date/Time Date Patient Seen: 05/08/19 Time Patient Seen: 12:24 Pain Control Pain control: tolerating well Pelvic Exam Dilation (cm): 4 Effacement (%): 75 station: -3 Amniotic membrane status: Ruptured Comments: AROM small amount of clear fluid Contractions Pitocin rate (mU/min): 24 Contraction pattern: Regular Contraction intensity: Mild Status status: Category l Heart Rate Baseline: 130 Monitor Accelerations: Present Monitor Decelerations: Absent Monitor Variability: Moderate Assessment and Plan Assessment: induction ongoing Plan: continuous present management
--- NOTE | 2019-05-08 18:07 | PM.OBPRVD ---
Events: Labor Induction (GDM A2) Delivery date: 05/08/19 Intrapartal events: Diabetes Induction method: per pitocin protocol Delivery augmentation: rupture of membranes Delivery monitor: external FHT Route of delivery: L&D Laceration Description: None Anesthesia type: Epidural Narrative: VAGINAL DELIVERY NOTE BRIEF HISTORY: Patient is a 33-year-old at 39+4 weeks who gave on 05/08/19 at 17:53. YOU: 05/11/19 Hospital problems: 39 weeks of GDM A2 Epidural analgesia STAGE I: Labor Patient received pitocin per protocol with regular contractions for several hours prior to active labor. AROM at 12:28 with clear fluid. Patient progressed well after AROM and received an epidural with good pain control. She was complete at 17:40. FHT were category 1 and 2 throughout stage one due to variable decelerations. Stage 1 duration 5 hours and 12 minutes. STAGE II: Delivery Patient was completed at 17:40. She pushed twice and delivered a vigorous male at 17:53. Presentation was vertex and ANTHONY. was immediately placed on mother's abdomen. Cord was clamped and cut after 1 minute delay. Apgars were 9 and 9 at 1 and 5 minutes respectively. STAGE III: Placenta/Cord Placenta delivered spontaneously at 17:58 after active management and appeared intact with a 3 vessel cord. Pitocin given after delivery of placenta. There were no cervical, vaginal or perineal lacerations. Fundus was firm below umbilicus after delivery. EBL: 150 mL. Needle and sponge counts were correct. The vagina was inspected and no items were left in situ. Patient was doing well with Dex, her and at bedside. Baby 1: gender: Male Presentation: vertex Placenta delivery description: Spontaneous cord vessel description: 3 Vessels score (1 min): 9 score (5 min): 9
[2019-05-09] MEDS: IBUPROFEN 600 MG TABLET PO (09:16)
[2019-05-09] MEDS: PRENATAL VIT,CALC/IRON/FOLIC 1 TABLET 1 TAB PO (09:17)
[2019-05-09] MEDS: DOCUSATE 250 MG CAPSULE PO (09:17)
--- NOTE | 2019-05-09 10:33 | PM.OBDS.1 ---
Discharge Providers Date of admission: 05/08/19 07:12 Discharge Date: 05/09/19 Primary care physician: Misty Nicholson DO Consults: 05/08/19 18:39 Consult to Locker Room Manager Routine Comment: Discharge provider: Misty Nicholson DO Summary Date Patient Seen: 05/09/19 Time Patient Seen: 10:11 Procedures: Spontaneous vaginal delivery Epidural analgesia Hospital Course: 33-year-old G2 now P2 after uncomplicated spontaneous vaginal delivery on 05/08/19 at 39 weeks and 4 days gestation. Patient was brought in for induction for GDM A2. Blood sugars were well-controlled throughout on metformin. Patient received Pitocin per protocol followed by artificial rupture of membranes with good progress of labor. Pain well controlled with epidural. Infant was vigorous at delivery. No lacerations. No complications. Patient reports bleeding is moderate as expected, pain well controlled with ibuprofen. She is ambulating, eating, and voiding without difficulty. is going well. is doing well without issues with hypoglycemia. Peripartum Data Delivery Method: Natural Vaginal Laceration description: None complications: none [place] 1: Gender: Male Disposition of : home Discharge Diagnosis (1) GDM, class A2: Status: Acute (2) 39 weeks gestation of : Status: Acute (3) Spontaneous vaginal delivery: Status: Acute Status at Discharge Cognitive/behavioral status at discharge: at baseline, oriented Functional status at discharge: independent ambulation Overall status at discharge: patient is back to baseline Time Spent with Patient Total time spent providing and/or coordinating discharge services: Less than 30 minutes Objective Labs Result Diagrams: 05/08/19 07:45 Labs: Laboratory Results - last 24 hr 05/08/19 05/08/19 07:45 07:45 Total Counted 100 Seg Neutrophils % 70.0 Lymphocytes % (Manual) 26.0 Monocytes % (Manual) 4.0 Neutrophils # (Manual) 5460 RBC Morphology Normal morphology Antibody Screen Negative Exam Vital Signs (past 8 hours): Temperature 98.0? blood pressure 110/61 heart rate 77 respirations 17 General: Awake and alert, no acute distress. HEENT: NCAT, EOMI, moist oral mucosa CV: Regular rate and rhythm, no murmurs, rubs or gallops Lungs: CTAB, no wheezes, rales, or rhonchi Abdomen: Soft, nontender; bowel tones active; uterus firm 1 cm below umbilicus Extremities: Warm, no edema, 2+ pedal pulses bilaterally Discharge Plan Discharge Plan Patient Disposition: Home Discharge comment: Call for fevers, severe pain or bleeding through more than a pad an hour. Discharge Med Rec/Prescriptions Prescriptions: Continued Blood Glucose Test strip .ROUTE .MEDSUPPLY Qty: 50 RF: 3 blood-glucose meter kit .ROUTE .MEDSUPPLY Qty: 1 RF: 0 prenat.vits,glenn,mms-sgac-wqppi tablet 1 tab PO DAILY RF: 0 Discontinued acyclovir 400 mg tablet 400 mg PO BID Qty: 60 RF: 0 metformin 500 mg tablet 1,000 mg PO BEDTIME RF: 0 Follow up/Referrals: Misty Nicholson DO [Primary Care Provider] - 6 Weeks Provider Discharge Instructions Diet: Diet as Tolerated Skin/Wound/Dressing Care Report to your healthcare provider any signs of infection, such as:: chills, fever, night sweats, increased pain, unusual drainage and unusual redness Discharge Data Primary Care Provider: Misty Nicholson Attending Provider: Misty Nicholson Admit Date/Time: 05/08/19 07:12
--- NOTE | 2019-05-09 10:37 | P.DS_ITS ---
Discharge Providers Date of admission: 05/08/19 07:12 Discharge Date: 05/09/19 Primary care physician: Misty Nicholson DO Consults: 05/08/19 18:39 Consult to Cafe Associate Routine Comment: Discharge provider: Misty Nicholson DO Summary Date Patient Seen: 05/09/19 Time Patient Seen: 10:11 Procedures: Spontaneous vaginal delivery Epidural analgesia Hospital Course: 33-year-old G2 now P2 after uncomplicated spontaneous vaginal delivery on 05/08/19 at 39 weeks and 4 days gestation. Patient was brought in for induction for GDM A2. Blood sugars were well-controlled throughout on metformin. Patient received Pitocin per protocol followed by artificial rupture of membranes with good progress of labor. Pain well controlled with epidural. Infant was vigorous at delivery. No lacerations. No complications. Patient reports bleeding is moderate as expected, pain well controlled with ibuprofen. She is ambulating, eating, and voiding without difficulty. is going well. is doing well without issues with hypoglycemia. Peripartum Data Delivery Method: Natural Vaginal Laceration description: None complications: none [place] 1: Gender: Male Disposition of : home Discharge Diagnosis (1) GDM, class A2: Status: Acute (2) 39 weeks gestation of : Status: Acute (3) Spontaneous vaginal delivery: Status: Acute Status at Discharge Cognitive/behavioral status at discharge: at baseline, oriented Functional status at discharge: independent ambulation Overall status at discharge: patient is back to baseline Time Spent with Patient Total time spent providing and/or coordinating discharge services: Less than 30 minutes Objective Labs Result Diagrams: 05/08/19 07:45 Labs: Laboratory Results - last 24 hr 05/08/19 05/08/19 07:45 07:45 Total Counted 100 Seg Neutrophils % 70.0 Lymphocytes % (Manual) 26.0 Monocytes % (Manual) 4.0 Neutrophils # (Manual) 5460 RBC Morphology Normal morphology Antibody Screen Negative Exam Vital Signs (past 8 hours): Temperature 98.0? blood pressure 110/61 heart rate 77 res pirations 17 General: Awake and alert, no acute distress. HEENT: NCAT, EOMI, moist oral mucosa CV: Regular rate and rhythm, no murmurs, rubs or gallops Lungs: CTAB, no wheezes, rales, or rhonchi Abdomen: Soft, nontender; bowel tones active; uterus firm 1 cm below umbilicus Extremities: Warm, no edema, 2+ pedal pulses bilaterally Discharge Plan Discharge Plan Patient Disposition: Home Discharge comment: Call for fevers, severe pain or bleeding through more than a pad an hour. Discharge Med Rec/Prescriptions Prescriptions: Continued Blood Glucose Test strip .ROUTE .MEDSUPPLY Qty: 50 RF: 3 blood-glucose meter kit .ROUTE .MEDSUPPLY Qty: 1 RF: 0 prenat.vits,glenn,bwp-kdvy-dnwei tablet 1 tab PO DAILY RF: 0 Discontinued acyclovir 400 mg tablet 400 mg PO BID Qty: 60 RF: 0 metformin 500 mg tablet 1,000 mg PO BEDTIME RF: 0 Follow up/Referrals: Misty Nicholson DO [Primary Care Provider] - 6 Weeks Provider Discharge Instructions Diet: Diet as Tolerated Skin/Wound/Dressing Care Report to your healthcare provider any signs of infection, such as:: chills, fever, night sweats, increased pain, unusual drainage and unusual redness Discharge Data Primary Care Provider: Misty Nicholson Attending Provider: Misty Nicholson Admit Date/Time: 05/08/19 07:12
[2019-05-09 14:37] VITALS: BP 123/60; PULSE 71; RESP 18; TEMP 36.7
== END 2019-05-09 16:00 | disposition home or self-care (01) | DRG 806 ==
PROVIDERS: Admitting Provider Family Medicine; PCP Family Medicine; Visit Provider Family Medicine
DX: O24.425 Gestational diabetes mellitus in childbirth, controlled by oral hypoglycemic drugs (principal); O98.32 Other infections with a predominantly sexual mode of transmission complicating childbirth; B00.9 Herpesviral infection, unspecified; Z37.0 Single live birth; Z3A.39 39 weeks gestation of pregnancy
CPT/HCPCS: 01967; 36415; 59050; 59400; 85025; 86850; 86900; 86901; G0379; J2590